=== PATIENT | female | born 1940 | race Hispanic/Latino ===

== ENCOUNTER 2019-10-05 09:49 | Inpatient (IN) | payer OTHER ==
[~2019-10-05] VITALS: Ht 157.5 cm; Wt 57.8 kg
[2019-10-05] MEDS ORDERED: MORPHINE SULFATE 2 MG/ML SYR 1ML IV ONE (11:00)
[2019-10-05] MEDS ORDERED: VANCOMYCIN 1GM/NS 250 ML 250 ML IV ONE (11:00)
[2019-10-05] MEDS ORDERED: ONDANSETRON HCL INJ 2MG/ML 2ML 2 MG/ML VIAL IV ONE (11:00)
[2019-10-05 11:27] LABS: BASOPHILS # (AUTO) 0.1 (0.0-0.1); BASOPHILS % 0.9 % (0.0-1.0); EOSINOPHILS % 0.4 % (0.0-6.0); HEMATOCRIT 33.3 % (34.2-44.1); HEMOGLOBIN 11.1 g/dL (12.0-16.0); LYMPHOCYTES # (AUTO) 1.2 (1.0-3.2); LYMPHOCYTES % 13.2 % (18.0-39.1); MEAN CORPUSCULAR HEMOGLOBIN 29.8 pg (28-32); MEAN CORPUSCULAR HGB CONC 33.3 g/dL (31-35); MEAN CORPUSCULAR VOLUME 89.3 fL (81-99); MONOCYTES # (AUTO) 0.3 (0.2-0.8); MONOCYTES % 3.4 % (4.4-11.3); NEUTROPHILS # (AUTO) 7.7 (2.1-6.9); NEUTROPHILS % 81.7 % (38.7-80.0); PLATELET COUNT 304 x10e3/uL (140-360); RED BLOOD COUNT 3.73 x10e6/uL (3.6-5.1); RED CELL DISTRIBUTION WIDTH 15.4 % (11.7-14.4)
--- NOTE | 2019-10-05 11:38 | Diagnostic Imaging Report ---
EXAMINATION: CHEST SINGLE (PORTABLE) INDICATION: Necrotic toe. COMPARISON: None FINDINGS: TUBES and LINES: None. LUNGS: Lungs are moderately inflated. There is no evidence of pneumonia or pulmonary edema. PLEURA: No pleural effusion or pneumothorax. Slight nonspecific elevation of the right hemidiaphragm. HEART AND MEDIASTINUM: The cardiomediastinal silhouette is unremarkable. BONES AND SOFT TISSUES: No acute osseous abnormality. Partially seen right proximal humeral fixation hardware. UPPER ABDOMEN: No free air under the diaphragm. IMPRESSION: No acute radiographic abnormality. Signed by: Dr. Carey Carranza MD on 10/05/2019 11:34 AM
[2019-10-05 11:42] LABS: INR 0.9; PROTHROMBIN TIME 12.6 seconds (11.9-14.5)
[2019-10-05] MEDS ORDERED: SODIUM CHLORIDE 0.9% 1000ML 1,000 ML IV ONE (11:45)
[2019-10-05] MEDS ORDERED: ONDANSETRON HCL INJ 2MG/ML 2ML 2 MG/ML VIAL IV PRN (11:45)
--- NOTE | 2019-10-05 11:49 | Diagnostic Imaging Report ---
Exam: Left foot radiographs-3 views Clinical History: Necrotic left second toe. Comparison: None. Findings/Impression: There is soft tissue irregularity in the second toe with soft tissue gas. It is unclear if is an erosion of the underlying second toe middle or distal phalanges to suggest osteomyelitis. MRI would be more sensitive for evaluation. There is soft tissue edema in the great toe. No evidence of acute displaced fracture or malalignment. Diffuse osteopenia. Moderate degenerative changes in the interphalangeal joints and midfoot. Signed by: Dr. Carey Carranza MD on 10/05/2019 11:45 AM
[2019-10-05 11:53] LABS: ALBUMIN 3.3 g/dL (3.5-5.0); ANION GAP 14.2 mmol/L (8-16); CALCIUM 9.6 mg/dL (8.4-10.2); CREATININE, SERUM 2.04 mg/dL (0.57-1.11); MAGNESIUM 1.7 MG/DL (1.3-2.1); POTASSIUM 3.2 mmol/L (3.5-5.1)
[2019-10-05 12:01] LABS: CREATINE KINASE MB 1.8 ng/mL (0-5.0)
[2019-10-05 12:01] LABS: BILIRUBIN,URINE NEGATIVE (NEGATIVE); CLARITY,URINE CLEAR (CLEAR); COLOR,URINE YELLOW (YELLOW); KETONES,URINE NEGATIVE (NEGATIVE); LEUKOCYTE ESTERASE ,URINE NEGATIVE (NEGATIVE); NITRITE,URINE NEGATIVE (NEGATIVE); PROTEIN,URINE DIPSTICK 2+ (NEGATIVE); URINE UROBILINOGEN 0.2 mg/dL (0.2 - 1)
--- OUTSIDE RECORDS SUMMARY | 2019-10-05 12:08 | XMS REPORT ---
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 Allergies, Adverse Reactions, Alerts This patient has no known allergies or adverse reactions. Medications This patient has no known medications. Results Test Description Test Time Test Comments Text Results Atomic Results Result Comments FOOT LEFT COMPLETE 2019-10-05 11:42:00 [place] [address] Patient Name: JACKIE PEREZ MR #: [id number] : 1940 Age/Sex: 79/F Req #: [id number] Adm Physician: Ordered by: BETHEL PARK MD Report #: [id number] Location: ER Room/Bed: Procedure: [id number] DX/FOOT LEFT COMPLETE Exam Date: 10/05/19 Exam Time: 1030 REPORT STATUS: Signed Exam: Left foot radiographs-3 views Clinical History: Necrotic left second toe. Comparison: None. Findings/Impression: There is soft tissue irregularity in the second toe with soft tissue gas. It is unclear if is an erosion of the underlying second toe middle or distal phalanges to suggest osteomyelitis. MRI would be more sensitive for evaluation. There is soft tissue edema in the great toe. No evidence of acute displaced fracture or malalignment. Diffuse osteopenia. Moderate degenerative changes in the interphalangeal joints and midfoot. Signed by: Dr. Cecile Ivy MD on 10/05/2019 11:45 AM Dictated By: CECILE IVY MD 1145 Transcribed By: CYRIL on 10/05/19 1145 COPY TO: BETHEL PARK MD CHEST SINGLE (PORTABLE) 2019-10-05 11:33:00 [place] [address] Patient Name: JACKIE PEREZ MR #: [id number] : 1940 Age/Sex: 79/F Req #: [id number] Adm Physician: Ordered by: BETHEL PARK MD Report #: [id number] Location: ER Room/Bed: Procedure: [id number] DX/CHEST SINGLE (PORTABLE) Exam Date: 10/05/19 Exam Time: 1030 REPORT STATUS: Signed EXAMINATION: CHEST SINGLE (PORTABLE) IND ICATION: Necrotic toe. COMPARISON: None FINDINGS: TUBES and LINES: None. LUNGS: Lungs are moderately inflated. There is no evidence of pneumonia or pulmonary edema. PLEURA: No pleural effusion or pneumothorax. Slight nonspecific elevation of the right hemidiaphragm. HEART AND MEDIASTINUM: The cardiomediastinal silhouette is unremarkable. BONES AND SOFT TISSUES: No acute osseous abnormality. Partially seen right proximal humeral fixation hardware. UPPER ABDOMEN: No free air under the diaphragm. IMPRESSION: No acute radiographic abnormality. Signed by: Dr. Cecile Ivy MD on 10/05/2019 11:34 AM Dictated By: CECILE IVY MD 1134 Transcribed By: CYRIL on 10/05/19 1134 COPY TO: BETHEL PARK MD
[2019-10-05 12:23] LABS: BACTERIA,URINE MODERATE /HPF; EPITHELIAL CELLS,URINE MODERATE /LPF; RBC,URINE 0-5 /HPF (0-5); YEAST,URINE FEW
[2019-10-05] MEDS ORDERED: POTASSIUM CHLORIDE 20 MEQ TAB CR PO ONE (14:00)
--- NOTE | 2019-10-05 15:30 | NUR ---
RECD PT FROM ER VIA W/C,AAOX3,DENIES PAIN,IV INFUSING TO RT AC 20 G.SECOND TOE LEFT FOOT BLACK,
[2019-10-05 16:08] VITALS: BP 180/75
[2019-10-05] MEDS ORDERED: DEXTROSE 50% SYRINGE 50 ML IV PRN (16:15)
[2019-10-05] MEDS ORDERED: METRONIDAZOLE500 MG PO (16:30)
[2019-10-05] MEDS ORDERED: GABAPENTIN100 MG PO (16:30)
[2019-10-05] MEDS ORDERED: CLONIDINE HCL0.1 MG PO (16:30)
[2019-10-05] MEDS ORDERED: NEXIUM40 MG PO (16:30)
[2019-10-05] MEDS ORDERED: FUROSEMIDE40 MG PO (16:30)
[2019-10-05] MEDS ORDERED: DOXYCYCLINE HY100 MG PO (16:30)
[2019-10-05] MEDS ORDERED: NORCO 5-325 TA1 EACH PO (16:30)
[2019-10-05] MEDS ORDERED: AMLODIPINE BESY10 MG PO (16:30)
[2019-10-05] MEDS ORDERED: ATORVASTATIN CA20 MG PO (16:30)
[2019-10-05] MEDS ORDERED: RENA-VITE RX T1 EACH PO (16:30)
[2019-10-05] MEDS ORDERED: ASPIR 8181 MG PO (16:30)
[2019-10-05] MEDS ORDERED: FERROUS SULFAT325 MG PO (16:30)
[2019-10-05] MEDS ORDERED: VASCEPA1 GM PO (16:30)
[2019-10-05] MEDS ORDERED: ALLOPURINOL100 MG PO (16:30)
[2019-10-05] MEDS ORDERED: METOPROLOL SUCC50 MG PO (16:30)
[2019-10-05] MEDS ORDERED: ULTRAM 50MG50 MG PO (16:30)
[2019-10-05] MEDS ORDERED: HYDROCODONE/APAP 5MG-325MG TAB PO PRN (16:30)
[2019-10-05] MEDS ORDERED: BENICAR20 MG PO (16:30)
[2019-10-05] MEDS ORDERED: TRULICITY1.5 MG/0.5 (16:30)
[2019-10-05] MEDS ORDERED: HYDROCHLOROTHIA25 MG PO (16:30)
[2019-10-05] MEDS: INSULIN REGULAR, HUMAN 100 UNIT/1 ML 3ML VIAL SQ SCH ×2 (16:30→21:00)
[2019-10-05] MEDS ORDERED: D3 DOTS2000 UNIT PO (16:30)
[2019-10-05] MEDS ORDERED: SODIUM CHLORIDE 0.9% 1000ML 1,000 ML ONE (17:15)
[2019-10-05] MEDS: CLONIDINE HCL 0.1 MG TAB PO SCH (17:25)
[2019-10-05] MEDS: OMEGA 3 POLYUNSAT FATTY ACIDS 1000 MG SOFTGEL PO SCH (17:25)
--- NOTE | 2019-10-05 18:31 | Consultation ---
DATE OF CONSULTATION: 10/05/2019 REASON FOR CONSULTATION: Gangrene with pain to the left foot with pain involving the first MPJ, left lower extremity with the patient being an insulin-dependent diabetic. HISTORY OF PRESENT ILLNESS: This is a pleasant 79-year-old female, who was seen in the office, was told to present through the emergency room secondary to worsening of her left lower extremity. She has had a gangrenous toe for at least four months with denying history of fever, chills, nausea, or vomiting. She was also having some pain involving the first MPJ, was instructed that the toe will need to be amputated. PAST MEDICAL HISTORY: Remarkable for diabetes, insulin dependent; chronic kidney disease, hypertension, and hyperlipidemia. PAST SURGICAL HISTORY: Remarkable for balloon angioplasty to the left lower extremity approximately a week ago, cholecystectomy, and right shoulder surgery. ALLERGIES: THE PATIENT DENIES WITH POSSIBLE ALLERGIES TO HYDRALAZINE. CURRENT MEDICATIONS: Note listed in chart including IV cefepime. SOCIAL HISTORY: Used to smoke at least a pack a week for 20 plus years. Socially drinks. Does not do any type of recreational drugs. Has five kids. Lives with . FAMILY HISTORY: Remarkable for diabetes. REVIEW OF SYSTEMS: CARDIAC: Denying any palpitations or arrhythmias. RESPIRATORY: Denies any shortness of breath or productive cough. GASTROINTESTINAL: Denies any diarrhea or constipation. GENITOURINARY: Denies any problems with voiding. PHYSICAL EXAMINATION: VITAL SIGNS: Afebrile, pulse rate 80, respirations 18, blood pressure 205/91, and O2 saturation 98%. PODIATRIC: Reveals the following vasculature, pedal pulses of both the DP and PT are diminished to both lower extremities. Skin temperature warm to touch with the CFT to all toes except the second less than 5 seconds. NEUROLOGIC: Decreased and protective sensation to both lower extremities. MUSCULOSKELETAL: Muscle mass to be symmetrical and wasted. Muscle strength to be 4/5 to all muscle groups. Has some pain and erythema surrounding the first MPJ, left foot with gangrenous toe and cellulitis to the second toe left foot with foul smell present. LABORATORY DATA: Noted as a white blood cell count of 9.4, hemoglobin 11.1 with a platelet count of 304. Blood glucose of 296, creatinine of 2.04, BUN of 30, and albumin of 3.3. ASSESSMENT: Cellulitis, gangrene, hallux valgus deformity with possible abscess formation. PLAN: X-rays of the left foot three views will be ordered. We will start diluted wet-to-dry Betadine dressing. Continue IV antibiotics. Dr. Lujan will be consulted and Dr. Lau for vascular evaluation and kidney evaluation. The patient will be scheduled for surgery on Sunday. MARCELLUS Wilcox/LUMA /[id number]
[2019-10-05 20:00] VITALS: BP 156/68
--- NOTE | 2019-10-05 20:00 | NUR ---
Received change of shift report from AM nurse. Walking rounds completed.
[2019-10-05] MEDS ORDERED: AMLODIPINE BESYLATE 10 MG TAB PO SCH (21:00)
[2019-10-05] MEDS: GABAPENTIN 100 MG CAP PO SCH (21:00)
[2019-10-05] MEDS: TRAMADOL HCL 50 MG TAB PO SCH (21:00)
[2019-10-05] MEDS: ATORVASTATIN 20 MG TAB PO SCH (21:00)
[2019-10-06] VITALS (8 sets, daily range): BP systolic 136–191; BP diastolic 63–77
[2019-10-06 06:22] LABS: BASOPHILS # (AUTO) 0.1 (0.0-0.1); BASOPHILS % 0.8 % (0.0-1.0); EOSINOPHILS # (AUTO) 0.1 (0.0-0.4); EOSINOPHILS % 1.6 % (0.0-6.0); HEMATOCRIT 29.2 % (34.2-44.1); HEMOGLOBIN 9.8 g/dL (12.0-16.0); LYMPHOCYTES # (AUTO) 1.9 (1.0-3.2); LYMPHOCYTES % 24.7 % (18.0-39.1); MEAN CORPUSCULAR HEMOGLOBIN 30.3 pg (28-32); MEAN CORPUSCULAR HGB CONC 33.6 g/dL (31-35); MEAN CORPUSCULAR VOLUME 90.4 fL (81-99); MONOCYTES # (AUTO) 0.5 (0.2-0.8); MONOCYTES % 6.5 % (4.4-11.3); NEUTROPHILS # (AUTO) 5.1 (2.1-6.9); PLATELET COUNT 276 x10e3/uL (140-360); RED BLOOD COUNT 3.23 x10e6/uL (3.6-5.1); RED CELL DISTRIBUTION WIDTH 15.5 % (11.7-14.4)
[2019-10-06 06:55] LABS: ALBUMIN 2.6 g/dL (3.5-5.0); ANION GAP 10.8 mmol/L (8-16); CALCIUM 8.6 mg/dL (8.4-10.2); CREATININE, SERUM 1.49 mg/dL (0.57-1.11); POTASSIUM 3.8 mmol/L (3.5-5.1)
[2019-10-06] MEDS: INSULIN REGULAR, HUMAN 100 UNIT/1 ML 3ML VIAL SQ SCH ×4 (08:40→20:16)
[2019-10-06] MEDS: PANTOPRAZOLE SOD 40 MG TABEC PO SCH (08:43)
[2019-10-06] MEDS: OMEGA 3 POLYUNSAT FATTY ACIDS 1000 MG SOFTGEL PO SCH ×2 (08:43→17:30)
[2019-10-06] MEDS: ASPIRIN 81 MG CHEW TAB PO SCH (08:43)
[2019-10-06] MEDS: CLONIDINE HCL 0.1 MG TAB PO SCH ×2 (08:43→17:30)
[2019-10-06] MEDS: OLMESARTAN 20 MG TAB PO SCH (08:43)
[2019-10-06] MEDS: METOPROLOL SUCCINATE 50 MG TAB XL PO SCH (08:43)
[2019-10-06] MEDS: FERROUS SULFATE 325 MG TAB PO SCH (08:43)
[2019-10-06] MEDS: FOLIC ACID/CYANOCOB/PYRIDOXINE TAB PO SCH (08:43)
[2019-10-06] MEDS: ALLOPURINOL 100 MG TAB PO SCH (08:44)
[2019-10-06] MEDS: CHOLECALCIFEROL 1,000 UNIT TAB PO SCH (08:44)
--- NOTE | 2019-10-06 08:44 | NUR ---
Pharmacy called this morning to clarify order for cefepime. Dr. Lau made aware of concern. Per it is okay to give. Pharmacy notified.
[2019-10-06] MEDS ORDERED: HYDROCHLOROTHIAZIDE 25 MG TAB PO SCH (09:00)
[2019-10-06] MEDS ORDERED: CEFEPIME 1GM/NS 0.9% 50 ML 50 ML IV SCH (09:00)
[2019-10-06] MEDS ORDERED: ACETAMINOPHEN 325 MG TAB PO PRN (09:00)
[2019-10-06] MEDS ORDERED: HYDRALAZINE HCL 20 MG/ML VIAL IV PRN (09:00)
[2019-10-06] MEDS ORDERED: FUROSEMIDE 40 MG TAB PO SCH (09:00)
[2019-10-06] MEDS ORDERED: ONDANSETRON HCL INJ 2MG/ML 2ML 2 MG/ML VIAL IV PRN (09:00)
[2019-10-06] MEDS ORDERED: NIFEDIPINE CR 30 MG TAB PO ONE (09:55)
--- NOTE | 2019-10-06 11:18 | Progress Note ---
DATE: 10/06/2019 SUBJECTIVE: The patient is seen at bedside, accompanied by family members, having some discomfort to the left lower extremity. She is denying any history of fever, chills, nausea, or vomiting. OBJECTIVE: VITAL SIGNS: Afebrile, pulse rate 68, respirations 19, blood pressure 191/77, and O2 saturation 100%. EXTREMITIES: Has cellulitis of the 2nd toe left foot with foul smell. Abscess formation noted proximal to the gangrene. Has erythema surrounding the 1st MPJ. Pedal pulses diminished, but skin temperature warm to touch. LABORATORY DATA: Labs show a white blood cell count of 7.7, hemoglobin 9.8 with a platelet count of 276, with a blood glucose of 133. ASSESSMENT: Hallux valgus deformity, capsulitis, gangrene with abscess, and osteomyelitis, left foot. PLAN: The patient will be taken for surgical intervention tomorrow. The proposed surgery plus risks and complications were reviewed in great detail. The patient and patient's family members were given time to ask questions. All questions were answered. Consent will be signed willingly. Procedure will be performed are I and D, left foot; amputation 2nd toe left foot with rotational flap closure with a silver bunionectomy. The patient will be kept n.p.o. after midnight . MARCELLUS Wilcox/LUMA /[id number]
[2019-10-06] MEDS: CEFEPIME 1GM/NS 0.9% 50 ML 50 ML IV SCH ×2 (12:01→23:49)
--- NOTE | 2019-10-06 12:45 | Consultation ---
DATE OF CONSULTATION: 10/05/2019 Cardiology Consultation CONSULTING PHYSICIAN: Stephan Drake MD, Interventional Cardiology. REASON FOR CONSULTATION: PAD. HISTORY OF PRESENT ILLNESS: Ms. Goldstein is a 79-year-old woman with diabetes, hypertension, and dyslipidemia, peripheral vascular disease, status post recent revascularization by Dr. Oliver at [facility] within the last month, presents with dry gangrene of left 2nd toe. She is scheduled for amputation during this hospital stay. She currently denies any chest discomfort or shortness of breath and has no other complaints at this time. REVIEW OF SYSTEMS: A 12-system review is negative except for as noted above. PAST MEDICAL HISTORY: Remarkable for hypertension, diabetes and dyslipidemia. ALLERGIES: HYDRALAZINE. SOCIAL HISTORY: No active smoking, alcohol, or drugs. FAMILY HISTORY: Noncontributory. PHYSICAL EXAMINATION: VITAL SIGNS: Temperature 97.5, heart rate 79, blood pressure 180/75, respiratory rate 18, O2 saturation 99% on room air. BMI 23.4. GENERAL: In no acute distress. Alert, active, oriented x3. NECK: No JVD. Carotid bruit noted left more than right. CHEST: Clear to auscultation bilaterally. CARDIOVASCULAR: Regular rate and rhythm. Normal S1, S2. Systolic ejection murmur of 2/6. No S3. No S4. ABDOMEN: Soft, nontender. Bowel sounds positive. EXTREMITIES: No edema. Palpable dorsalis pedis and posterior tibial arteries. No edema. SKIN: Dry gangrene of left 2nd toe. MEDICATIONS: Cardiovascular medications have been reviewed. Aspirin 81 mg daily, furosemide 40 mg daily, metoprolol succinate 50 mg daily, atorvastatin 20 mg at bedtime, olmesartan 40 mg daily, clonidine 0.1 mg b.i.d., hydrochlorothiazide 25 mg daily, amlodipine 10 mg daily. STUDIES: Reviewed. Remarkable for creatinine of 2.04, potassium of 3.2 and a bicarbonate of 27. White blood cells 9.4, hemoglobin 11.1 and platelets 304. INR 0.9, PT 12.6, PTT 27. AST 15, ALT 17, alkaline phosphatase 101, total bilirubin 0.4. ASSESSMENT AND PLAN: A 79-year-old woman presents with peripheral arterial disease, status post left 2nd toe gangrene, recent revascularization at [facility], history of chronic kidney disease, diabetes, hypertension, dyslipidemia, noted to have carotid bruits and heart murmur on exam. 1. Recommend carotid ultrasound and echocardiogram. 2. Adjust antihypertensives as necessary to optimize blood pressure control. 3. Agree with continuing statin and aspirin. 4. Request records from [facility] regarding recent operative report from angiographic and revascularization procedure. Stephan Drake MD AFV/MODTami /[id number] MTDD
--- NOTE | 2019-10-06 13:00 | Progress Note ---
DATE: 10/06/2019 Cardiology Progress Note SUBJECTIVE: Denies any chest pain or shortness of breath. OBJECTIVE: VITAL SIGNS: Temperature 96.9, heart rate 68, blood pressure 120/70, respiratory rate 19, and O2 saturation 100%. GENERAL: No acute distress, alert. NECK: No JVD. CHEST: Clear to auscultation. CARDIOVASCULAR: Regular rate and rhythm. Normal S1, S2. ABDOMEN: Soft, nontender. Bowel sounds positive. EXTREMITIES: No edema. Warm distal extremities. Abnormal pedal pulses. Left toe gangrene. CARDIOVASCULAR MEDICATIONS: Clonidine, olmesartan, aspirin, atorvastatin, and nifedipine. LABORATORY DATA: Studies reviewed. Creatinine 1.4. White blood cell 7.7, hemoglobin 9.8, and platelets 276. ASSESSMENT AND PLAN: A 79-year-old woman, who presents with left toe gangrene, status post recent revascularization for peripheral arterial disease at [facility], records requested and pending, preserved left ventricular systolic function, diabetes, hypertension, and dyslipidemia. Recommend continue perioperative beta-blockers, moderate risk for adverse cardiovascular outcomes. No unstable cardiac conditions identified. Awaiting operative report from recent revascularization. We will follow along with you. MD TRISHA Clancy/LUMA /[id number]
--- NOTE | 2019-10-06 19:15 | NUR ---
patient received awake, alert, lying quietly in bed. no c/o pain noted. iv out at this time and to be replaced shortly. pm assessment complete. patient npo after mn for surgery tomorrow. patient verbalizes understanding of this. daughter noted at the bedside. patient/daughter instructed to call for assistance when needed.
--- NOTE | 2019-10-06 19:25 | NUR ---
new iv #22 placed to the left hand x 1 stick.
[2019-10-06] MEDS: TRAMADOL HCL 50 MG TAB PO SCH (20:15)
[2019-10-06] MEDS: ATORVASTATIN 20 MG TAB PO SCH (20:15)
[2019-10-06] MEDS: GABAPENTIN 100 MG CAP PO SCH (20:15)
--- NOTE | 2019-10-06 20:16 | NUR ---
blood sugar 256. 8 units humulin regular given per sliding scale. pm snack given at this time. patient/daughter is aware that patient is to remain npo after mn for surgery tomorrow.
--- NOTE | 2019-10-06 23:33 | Consultation ---
DATE OF CONSULTATION: 10/06/2019 REQUESTING PHYSICIAN: Dr. Casiano. REASON FOR CONSULTATION: CKD. Thank you for allowing us to participate in Ms. Goldstein's care, I am covering for Dr. Zuluaga. HISTORY OF PRESENT ILLNESS: A 79-year-old female with baseline creatinine of 1.4 or so, CKD is presumed from diabetes and hypertensive end-organ damage, has been dealing with gangrenous toe on the left foot, which has been dry, may need an amputation. She has been admitted because of worsening of the above gangrene. Denies any fever. Denies any chills. Denies any swelling. Admission creatinine was 2, it down to 1.4, so with the IV fluids. There is a prior history of smoking. She has had work done on that leg by Dr. Oliver at [facility]. She has a kidney doctor, Dr. Estrada, who does not come here. PAST MEDICAL HISTORY: Type 2 diabetes, CKD stage 3, hypertension, dyslipidemia, peripheral vascular disease. ALLERGIES: HYDRALAZINE. MEDICATIONS: Please see chart. SOCIAL HISTORY: At least prior 20/30 pack-year history of smoking. FAMILY HISTORY: Type 2 diabetes. REVIEW OF SYSTEMS: CONSTITUTIONAL: No fever, chills. SKIN: Darkening of the toe on the left foot. CARDIAC: No angina or syncope. RESPIRATORY: No cough, hemoptysis. NEURO: Denies any headache, seizures. Rest of review is negative. PHYSICAL EXAMINATION: GENERAL: Lying in bed, no distress. VITAL SIGNS: Temperature 98.5, pulse 68, blood pressure 159/69. CHEST: Clear. EXTREMITIES: No edema. ABDOMEN: Benign. NEUROLOGIC: Alert, appropriate. SKIN: Gangrenous changes in left foot. With minimal erythema around it. LABORATORY DATA: Hemoglobin is 9.8, creatinine 1.5. BUN 24, serum CO2 of 27, K of 3.8, calcium of 8.6, albumin 2.6. Urine is showing some proteinuria consistent with diabetic end-organ damage. ASSESSMENT: 1. Chronic kidney disease, stage 3, any acute injury at admission appears to be better. Most likely, she was a bit volume depleted and that has improved. 2. Anemia of chronic kidney disease. 3. Diabetic. 4. Hypertension. 5. End-organ damage. 6. Peripheral vascular disease. PLAN: From renal standpoint, continue current medications. She appears to be tolerating her angiotensin receptor kelvin. We will avoid NSAIDs and other nephrotoxins. We will follow along. MD RICK Pinto/LUMA /[id number]
[2019-10-06] MEDS ORDERED: SODIUM CHLORIDE 0.9% 250ML 250 ML ONE (23:38)
[2019-10-07] VITALS (8 sets, daily range): BP systolic 139–195; BP diastolic 63–78
--- NOTE | 2019-10-07 | NUR ---
patient appears to be resting quietly. no signs of pain/discomfort noted at this time. daughter remains at the bedside.
[2019-10-07] MEDS: NIFEDIPINE CR 30 MG TAB PO SCH (05:24)
[2019-10-07] MEDS ORDERED: BETAMETHASONE DISODIUM PHOS 6 MG/ML VIAL ONE (07:03)
[2019-10-07] MEDS ORDERED: LIDOCAINE HCL 1% LOCAL INJ 20 ML VIAL ONE (07:04)
[2019-10-07] MEDS ORDERED: BACITRACIN 50,000 UNIT VIAL ONE (07:04)
[2019-10-07] MEDS ORDERED: MUPIROCIN 2% OINT 22 GM TUBE ONE (07:04)
[2019-10-07] MEDS ORDERED: BUPIVACAINE HCL 0.5% INJ 30 ML VIAL INJ ONE (07:04)
--- NOTE | 2019-10-07 07:28 | NUR ---
PT LEAVING FLOOR FOR SURGERY AT THIS TIME.
[2019-10-07] MEDS: PANTOPRAZOLE SOD 40 MG TABEC PO SCH (07:30)
[2019-10-07] MEDS: INSULIN REGULAR, HUMAN 100 UNIT/1 ML 3ML VIAL SQ SCH ×4 (07:30→20:13)
--- NOTE | 2019-10-07 09:05 | NUR ---
REPORT RECEIVED FROM ORVILLE RICHARDSON FROM PACU.
[2019-10-07] MEDS ORDERED: METOPROLOL TARTRATE INJ 1 MG/ML VIAL ONE ×2 (09:16→18:39)
[2019-10-07 09:19] LABS: BASOPHILS # (AUTO) 0.1 (0.0-0.1); EOSINOPHILS # (AUTO) 0.2 (0.0-0.4); EOSINOPHILS % 2.5 % (0.0-6.0); HEMATOCRIT 29.7 % (34.2-44.1); HEMOGLOBIN 9.9 g/dL (12.0-16.0); LYMPHOCYTES # (AUTO) 1.3 (1.0-3.2); LYMPHOCYTES % 17.7 % (18.0-39.1); MEAN CORPUSCULAR HEMOGLOBIN 30.4 pg (28-32); MEAN CORPUSCULAR HGB CONC 33.3 g/dL (31-35); MEAN CORPUSCULAR VOLUME 91.1 fL (81-99); MONOCYTES # (AUTO) 0.5 (0.2-0.8); MONOCYTES % 6.4 % (4.4-11.3); NEUTROPHILS # (AUTO) 5.1 (2.1-6.9); PLATELET COUNT 292 x10e3/uL (140-360); RED BLOOD COUNT 3.26 x10e6/uL (3.6-5.1); RED CELL DISTRIBUTION WIDTH 15.7 % (11.7-14.4)
--- NOTE | 2019-10-07 09:21 | Diagnostic Imaging Report ---
EXAMINATION: FOOT LEFT AP LAT INDICATION: Postoperative COMPARISON: None FINDINGS: Portable AP and lateral images of the left foot demonstrate postoperative findings of interval amputation of the second toe at the level of the base of the second proximal phalanx. No unexpected fracture. Alignment appears anatomic. Mild diffuse osteopenia. Mild scattered degenerative changes. Small plantar calcaneal spur. Overlying splint material obscures fine bony detail. IMPRESSION: Postoperative findings status post second toe amputation. Signed by: Jeimy Katz MD on 10/07/2019 9:18 AM
--- NOTE | 2019-10-07 09:31 | NUR ---
PT ARRIVING TO UNIT FROM PACU BY STRETCHER AT THIS TIME.
[2019-10-07 09:35] LABS: ANION GAP 10.2 mmol/L (8-16); CALCIUM 8.8 mg/dL (8.4-10.2); CREATININE, SERUM 1.45 mg/dL (0.57-1.11); POTASSIUM 4.2 mmol/L (3.5-5.1)
--- NOTE | 2019-10-07 09:37 | NUR ---
PT ALERT AND ORIENTED AT THIS TIME. LEFT LEG IS WRAPPED AND IS CLEAN DRY AND INTACT AT THIS TIME. LEFT LEG ELEVATED ON PILLOW. FAMILY IS PRESENT AT BEDSIDE AND CALL LIGHT IS IN REACH.
[2019-10-07] MEDS: OLMESARTAN 20 MG TAB PO SCH (10:13)
[2019-10-07] MEDS: ASPIRIN 81 MG CHEW TAB PO SCH (10:13)
[2019-10-07] MEDS: CLONIDINE HCL 0.1 MG TAB PO SCH ×2 (10:14→16:55)
[2019-10-07] MEDS: FERROUS SULFATE 325 MG TAB PO SCH (10:15)
[2019-10-07] MEDS: OMEGA 3 POLYUNSAT FATTY ACIDS 1000 MG SOFTGEL PO SCH ×2 (10:15→16:55)
[2019-10-07] MEDS: FOLIC ACID/CYANOCOB/PYRIDOXINE TAB PO SCH (10:15)
[2019-10-07] MEDS: ALLOPURINOL 100 MG TAB PO SCH (10:16)
[2019-10-07] MEDS: METOPROLOL SUCCINATE 50 MG TAB XL PO SCH (10:16)
[2019-10-07] MEDS: CHOLECALCIFEROL 1,000 UNIT TAB PO SCH (10:16)
[2019-10-07] MEDS: CEFEPIME 1GM/NS 0.9% 50 ML 50 ML IV SCH (14:04)
[2019-10-07] MEDS ORDERED: SEVOFLURANE INHAL SOLN 250 ML PEN BTL ONE (18:39)
[2019-10-07] MEDS ORDERED: PROPOFOL IV EMULSION 10 MG/ML 20 ML VIAL ONE (18:39)
[2019-10-07] MEDS ORDERED: ACETAMINOPHEN 1000 MG/100 ML IV ONE (18:39)
[2019-10-07] MEDS ORDERED: LIDOCAINE HCL 2% LOCAL INJ 5 ML SDV VIAL INJ ONE (18:39)
--- NOTE | 2019-10-07 19:30 | NUR ---
patient received awake, alert, lying quietly in bed. patient c/o pain to left foot 6/10 at this time. patient recently medicated for pain. will call re: pain. pm assessment complete. daughter noted at the bedside. patient/daughter instructed to call for assistance when needed.
[2019-10-07] MEDS ORDERED: FENTANYL CITRATE/PF 100MCG/2 ML INJ ONE (19:35)
[2019-10-07] MEDS ORDERED: MIDAZOLAM HCL 2 MG/2 ML VIAL ONE (19:35)
[2019-10-07] MEDS: ATORVASTATIN 20 MG TAB PO SCH (20:12)
[2019-10-07] MEDS: HYDROCODONE/APAP 10MG-325MG TAB PO PRN (20:12)
[2019-10-07] MEDS: TRAMADOL HCL 50 MG TAB PO SCH (20:12)
[2019-10-07] MEDS: GABAPENTIN 100 MG CAP PO SCH (20:12)
--- NOTE | 2019-10-07 20:12 | NUR ---
Dr. Lau called re: patients pain. norco dose increased and ordered to give first dose now. patient medicated for pain at this time.
--- NOTE | 2019-10-07 20:17 | Progress Note ---
DATE: 10/07/2019 Cardiology Progress note SUBJECTIVE: Denies any new complaints. OBJECTIVE: VITAL SIGNS: Temperature 96.5, heart rate 68, blood pressure 173/73, respiratory rate 14, O2 saturation 100%, and BMI 23.4. GENERAL: In no acute distress, alert. NECK: Carotid bruit/subclavian bruit. No JVD. CHEST: Clear to auscultation bilaterally. CARDIOVASCULAR: Regular rate and rhythm. Normal S1, S2. No S3 or S4. ABDOMEN: Soft. Bowel sounds positive. EXTREMITIES: Trace edema. Left foot with postsurgical bandages in place. CARDIOVASCULAR MEDICATIONS: Reviewed. On clonidine, metoprolol, ferrous sulfate, aspirin, atorvastatin. STUDIES: Reviewed. Creatinine 1.4, hemoglobin 9.9, and platelets 292. INR 0.9. AST 13, ALT 13, alkaline phosphatase 76. ASSESSMENT AND PLAN: A 79-year-old woman, presents with left toe gangrene, now status post amputation. Recent outpatient revascularization for PAD, has significant right subclavian artery stenosis by arterial Doppler. RECOMMENDATIONS: 1. Check blood pressure to both upper extremities today to assess for hemodynamically and clinically significant difference in blood pressure, if confirmed go by left upper extremity blood pressure rates only. 2. Continue rest of cardiovascular medications. 3. Further adjusting antihypertensives as necessary. Stephan Drake MD AFKaren/LUMA /[id number]
[2019-10-08] MEDS: CEFEPIME 1GM/NS 0.9% 50 ML 50 ML IV SCH
[2019-10-08 00:05] VITALS: BP 156/67
[2019-10-08] MEDS: HYDROCODONE/APAP 10MG-325MG TAB PO PRN ×2 (02:06→07:58)
--- NOTE | 2019-10-08 02:06 | NUR ---
patient medicated with norco 10/325mg po for c/o left foot pain 04/21 at this time.
[2019-10-08 03:45] VITALS: BP 160/69
[2019-10-08] MEDS: NIFEDIPINE CR 30 MG TAB PO SCH (05:08)
[2019-10-08 05:49] LABS: BASOPHILS % 0.5 % (0.0-1.0); EOSINOPHILS # (AUTO) 0.3 (0.0-0.4); EOSINOPHILS % 4.2 % (0.0-6.0); HEMATOCRIT 28.5 % (34.2-44.1); LYMPHOCYTES % 26.2 % (18.0-39.1); MEAN CORPUSCULAR HEMOGLOBIN 29.3 pg (28-32); MEAN CORPUSCULAR HGB CONC 31.6 g/dL (31-35); MEAN CORPUSCULAR VOLUME 92.8 fL (81-99); MONOCYTES # (AUTO) 0.6 (0.2-0.8); MONOCYTES % 7.2 % (4.4-11.3); NEUTROPHILS # (AUTO) 4.7 (2.1-6.9); NEUTROPHILS % 61.5 % (38.7-80.0); PLATELET COUNT 236 x10e3/uL (140-360); RED BLOOD COUNT 3.07 x10e6/uL (3.6-5.1); RED CELL DISTRIBUTION WIDTH 15.6 % (11.7-14.4)
[2019-10-08 06:05] LABS: ANION GAP 12.8 mmol/L (8-16); CALCIUM 8.6 mg/dL (8.4-10.2); CREATININE, SERUM 1.62 mg/dL (0.57-1.11); POTASSIUM 4.8 mmol/L (3.5-5.1)
--- NOTE | 2019-10-08 07:25 | NUR ---
PT UP IN BED SLEEPING NO DISTRESS NTOED DENIES PAIN
[2019-10-08 07:30] VITALS: BP 176/76
[2019-10-08 08:07] VITALS: BP 176/76
[2019-10-08] MEDS: PANTOPRAZOLE SOD 40 MG TABEC PO SCH (08:35)
[2019-10-08] MEDS: OLMESARTAN 20 MG TAB PO SCH (08:36)
[2019-10-08] MEDS: ASPIRIN 81 MG CHEW TAB PO SCH (08:36)
[2019-10-08] MEDS: OMEGA 3 POLYUNSAT FATTY ACIDS 1000 MG SOFTGEL PO SCH (08:37)
[2019-10-08] MEDS: ALLOPURINOL 100 MG TAB PO SCH (08:37)
[2019-10-08] MEDS: FERROUS SULFATE 325 MG TAB PO SCH (08:37)
[2019-10-08] MEDS: CHOLECALCIFEROL 1,000 UNIT TAB PO SCH (08:37)
[2019-10-08] MEDS: CLONIDINE HCL 0.1 MG TAB PO SCH (08:37)
[2019-10-08] MEDS: FOLIC ACID/CYANOCOB/PYRIDOXINE TAB PO SCH (08:37)
[2019-10-08] MEDS: METOPROLOL SUCCINATE 50 MG TAB XL PO SCH (08:37)
[2019-10-08] MEDS: INSULIN REGULAR, HUMAN 100 UNIT/1 ML 3ML VIAL SQ SCH (08:42)
[2019-10-08] MEDS ORDERED: SENNA LAX8.6 MG PO (10:32)
[2019-10-08] MEDS ORDERED: CLINDAMYCIN HC150 MG PO (10:32)
[2019-10-08] MEDS ORDERED: MILK OF MA2400 MG/10 PO (10:35)
[2019-10-08] MEDS ORDERED: KETOROLAC TROMETHAMINE 30 MG/ML VIAL IV ONE (12:30)
--- NOTE | 2019-10-08 14:16 | Progress Note ---
DATE: 10/08/2019 Cardiology Progress Note SUBJECTIVE: No complaints. OBJECTIVE: VITAL SIGNS: Temperature 96.6, heart rate 73, blood pressure 176/76, respiratory rate 20, O2 saturation 99%. BMI 23. GENERAL: No acute distress, alert. NECK: No JVD. CHEST: Clear to auscultation. CARDIOVASCULAR: Regular rate and rhythm. Normal S1 and S2. No S3 or S4. ABDOMEN: Soft. Bowel sounds positive. EXTREMITIES: Trace edema. Left foot covered with dressings. CARDIOVASCULAR MEDICATIONS: Reviewed. Clonidine 0.1 mg b.i.d., losartan 40 mg daily, ferrous sulfate 325 mg daily, aspirin 81 mg daily, nifedipine 60 mg daily, atorvastatin 20 mg at bedtime, metoprolol succinate 50 mg daily. LABORATORY STUDIES: Reviewed. Sodium 143, potassium 4.8, chloride 109, bicarbonate 26, BUN 27, creatinine 1.62, glucose 127. White blood cells 7.6, hemoglobin 9, platelets 236. PT 12.6, PTT 27, INR 0.9. AST 13, ALT 13, alkaline phosphatase 76, total bilirubin 0.3. ASSESSMENT AND PLAN: A 79-year-old woman presents with peripheral vascular disease and has right subclavian artery stenosis with low blood pressure reads artifactually noted to right upper extremity as opposed to left upper extremity. 1. Hypertension. 2. Diabetes. 3. Neuropathy. 4. Peripheral vascular disease status post left toe gangrene and amputation. 5. Chronic kidney disease. 6. Anemia. RECOMMENDATIONS: 1. I will titrate metoprolol to 50 mg every 12 hours. 2. Obtain blood pressure reads only from left upper extremity and avoid reads from right upper extremity given right subclavian artery stenosis by carotid ultrasound and with significant difference in blood pressure rates upper extremities. 3. Anemia. Monitor. 4. Continue aspirin and statin. 5. Outpatient followup advised in 3 to 4 weeks. The patient underwent recent revascularization by Dr. Oliver. Stephan Drake MD AFV/MODL /[id number]
--- NOTE | 2019-10-08 14:37 | Progress Note ---
DATE: 10/08/2019 SUBJECTIVE: Had toe amputation on the left foot. Postop pain is noted, no swelling. Blood pressure has been somewhat high, partly on account of the pain. OBJECTIVE: VITAL SIGNS: Blood pressure is 176/96, pulse 73, and temperature 96.6. CHEST: Clear. EXTREMITIES: No edema. Right foot in bandage. ASSESSMENT: 1. Hypertension, not quite at goal, partly may be pain related, but still needs to be controlled. 2. Status post left toe amputation, second digit. 3. Anemia of chronic kidney disease. PLAN: Favor increasing the metoprolol to blood pressure settle down. She does have followup with Dr. 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 Avoid NSAIDs. We will follow along. MD RICK Pinto/LUMA /[id number]
--- NOTE | 2019-10-08 15:06 | Progress Note ---
DATE: 10/08/2019 SUBJECTIVE: The patient is seen at bedside, accompanied by family member, doing well. Some discomfort to the left lower extremity. Denies any history of fever, chills, nausea, or vomiting. OBJECTIVE: VITAL SIGNS: Afebrile. Vital signs stable. EXTREMITIES: CFT to all toes less than 4 seconds. No bloody strikethrough noted through the dressing. ASSESSMENT: Status post #1 day left foot surgery, multiple procedures. PLAN: Okay to be discharged today if okay with Dr. Lau. The patient is instructed to not walk on the foot. Will be seen in one week for dressing removal. Instructed not to touch the dressing until seen in the office. The patient's white blood cell count is stable down to 7.6, hemoglobin is 9.0 with a platelet count of 236, and a blood glucose of 127. MARCELLUS Wilcox/LUMA /[id number]
[2019-10-08] MEDS ORDERED: METOPROLOL SUCCINATE 50 MG TAB XL PO SCH (21:00)
--- NOTE | 2019-10-09 04:56 | Discharge Summary ---
PRIMARY CARE PHYSICIAN: Dr. Ryan Wilson. CONSULTING PHYSICIANS: 1. Dr. Stephan Drake. 2. Dr. Lor Zuluaga. 3. Dr. Raj Casiano. FINAL DIAGNOSES: 1. 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 2. Status post abscess incision and drainage and amputation of the 2nd toe. SUMMARY: The patient is a 79-year-old female with toe gangrene infection, osteomyelitis. The culture grew out to be Staphylococcus aureus. The patient is on antibiotics. She is stable. The patient has bone and soft tissue removal. She is stable. The dressing will not be changed and Dr. Casiano will see the patient on . The patient will go home today. She will resume all home medication. I will add on clindamycin 300 mg 3 times a day for 7 days. She will continue her doxycycline. The patient is otherwise stable and discharged home today. MD LOY Gibson/LUMA /[id number]
--- NOTE | 2019-10-17 04:48 | Operative Report ---
DATE OF PROCEDURE: 10/07/2019 SURGEON: Raj Casiano DPM PREOPERATIVE DIAGNOSES: 1. Abscess, left foot. 2. Gangrene, left foot. 3. Osteomyelitis, left foot. 4. High hallux valgus deformity, left foot. POSTOPERATIVE DIAGNOSES: Confirmed. OPERATIVE PROCEDURES: 1. I and D of abscess down to bone. 2. Partial amputation of 2nd toe, left foot. 3. Rotational flap closure. 4. Silver bunionectomy. 5. Intraoperative use of fluoroscopy. 6. Application of posterior splint. ANESTHESIA: General. HEMOSTASIS: None. PROCEDURE IN DETAIL: The patient was taken into the operating room and placed on the operating room table in supine position. Following induction of general anesthesia by the anesthesiologist, the left lower extremity was then prepped and draped in the usual aseptic manner, following procedures then performed: Procedure #1: I and D of abscess, left foot. Attention was directed to the dorsal aspect of the 2nd toe, where a curvilinear incision was performed overlying the gangrenous changes. Incision was deepened down to bone. Abscess was encountered and cultured for aerobic and anaerobic growth. At this point, the toe was then disarticulated at the proximal interphalangeal joint and sent for pathological analysis. Further debridement was done via sharp and blunt dissection until good viable bleeding tissue was achieved. At this point, utilizing the oscillating saw, the distal 3/4 of the proximal phalanx was then excised from the operation site in toto. All rough and bony edges were rasped smooth. Procedure #2: Rotational flap closure. Then, the incision was deepened proximal medially and dorsally laterally to create a plantar flap to allow for proper closure of the flap with minimal skin tension, hopefully, per any type of further surgical intervention and also more proximal amputation, the flap was then reapproximated utilizing 4-0 Vicryl, and 4-0 nylon with minimal skin tension was achieved. Procedure #4: Silver bunionectomy, left foot. Attention was then directed to the dorsal aspect of the 1st MPJ, where a 6 cm linear incision was performed. Incision was deepened down to the joint capsule. Longitudinal capsulotomy was then performed exposing the dorsomedial exostosis of the 1st metatarsal head via the use of an oscillating saw and rotating bur, dorsal medial exostosis was excised from the operation site in toto. A capsulorrhaphy was then performed to allow for a medial deviation of the toe utilizing 3-0 Vicryl for capsule and 4-0 nylon for skin. Procedure #5: Intraoperative use of fluoroscopy was then used to make sure proper alignment, partial resection was achieved. Procedure #6: Properly placed posterior splint was then applied, keeping the foot at 90 degrees with respect to the leg to try for any type of postop complications. The patient remained in the hospital for one day for IV antibiotics, will be discharged tomorrow if okay with Dr. Lau. She is to follow up in 1 week in the office. Instructed to keep her weightbearing to a minimum. Keep foot elevated. No guarantees were given, may need a more proximal amputation if not responsive. MARCELLUS Wilcox/LUMA /[id number]
== END 2019-10-08 13:30 | disposition home or self-care (01) | DRG 256 ==
LOC: ER 09:49 → ERHOLD 11:39 → MED/SURG3 15:40
PROVIDERS: ADMIT Internal Medicine; ATTEND Internal Medicine
PROC: 0HXNXZZ Transfer Left Foot Skin, External Approach (ICD-10-PCS; 2019-10-07)
PROC: 0J9R0ZZ Drainage of Left Foot Subcutaneous Tissue and Fascia, Open Approach (ICD-10-PCS; 2019-10-07)
PROC: 0Y6S0Z0 Detachment at Left 2nd Toe, Complete, Open Approach (ICD-10-PCS; principal; 2019-10-07 07:43)
PROC: 0QBP0ZZ Excision of Left Metatarsal, Open Approach (ICD-10-PCS; 2019-10-07 07:43)
DX: E11.52 Type 2 diabetes mellitus with diabetic peripheral angiopathy with gangrene (principal); I96 Gangrene, not elsewhere classified; L02.612 Cutaneous abscess of left foot; N17.9 Acute kidney failure, unspecified; M86.8X7 Other osteomyelitis, ankle and foot; L03.032 Cellulitis of left toe; E11.22 Type 2 diabetes mellitus with diabetic chronic kidney disease; I12.9 Hypertensive chronic kidney disease with stage 1 through stage 4 chronic kidney disease, or unspecified chronic kidney disease; E78.5 Hyperlipidemia, unspecified; M20.12 Hallux valgus (acquired), left foot; N18.3 Chronic kidney disease, stage 3 (moderate); E11.69 Type 2 diabetes mellitus with other specified complication; D63.1 Anemia in chronic kidney disease; Z87.891 Personal history of nicotine dependence
CPT/HCPCS: 36415; 71045; 80048; 80053; 81001; 82550; 82553; 82948; 83735; 84484; 85025; 85610; 85730; 87040; 87071; 87075; 87086; 87186; 87205; 88304; 88305; 88311; 93005; 93306; 93880; 99284; J0692; J0720; J1817; J1885; J2001; J2250; J2270; J2405; J3010; J3370; J7030; J7050

== ENCOUNTER 2021-05-02 11:09 | Inpatient (IN) | payer OTHER ==
[~2021-05-02 11:09] MED LIST: ALLOPURINOL100 MG PO; AMLODIPINE BESY10 MG PO; ASPIR 8181 MG PO; ATORVASTATIN CA20 MG PO; BENICAR20 MG PO; CLINDAMYCIN HC150 MG PO; CLONIDINE HCL0.1 MG PO; D3 DOTS2000 UNIT PO; DOXYCYCLINE HY100 MG PO; FERROUS SULFAT325 MG PO; FUROSEMIDE40 MG PO; GABAPENTIN100 MG PO; HYDROCHLOROTHIA25 MG PO; METOPROLOL SUCC50 MG PO; METRONIDAZOLE500 MG PO; MILK OF MA2400 MG/10 PO; NEXIUM40 MG PO; NORCO 5-325 TA1 EACH PO; RENA-VITE RX T1 EACH PO; SENNA LAX8.6 MG PO; TRULICITY1.5 MG/0.5; ULTRAM 50MG50 MG PO; VASCEPA1 GM PO
[2021-05-02 11:45] LABS: ALBUMIN/GLOBULIN RATIO 0.9 (0.8-2.0); ANION GAP 17.4 mmol/L (8-16); CREATININE, SERUM 3.31 mg/dL (0.57-1.11); POTASSIUM 3.4 mmol/L (3.5-5.1)
[2021-05-02] MEDS ORDERED: CEFTRIAXONE 1 GM in SODIUM CHLORIDE 0.9% 50ML 50 ML IV ONE (11:45)
[2021-05-02] MEDS ORDERED: FENTANYL CITRATE/PF 100MCG/2 ML INJ IV ONE (11:45)
[2021-05-02 11:46] LABS: BASOPHILS # (AUTO) 0.1 (0.0-0.1); BASOPHILS % 0.6 % (0.0-1.0); EOSINOPHILS # (AUTO) 0.4 (0.0-0.4); EOSINOPHILS % 2.6 % (0.0-6.0); HEMOGLOBIN 10.5 g/dL (12.0-16.0); LYMPHOCYTES # (AUTO) 1.6 (1.0-3.2); LYMPHOCYTES % 11.6 % (18.0-39.1); MEAN CORPUSCULAR HEMOGLOBIN 29.7 pg (28-32); MEAN CORPUSCULAR HGB CONC 32.8 g/dL (31-35); MEAN CORPUSCULAR VOLUME 90.7 fL (81-99); MONOCYTES # (AUTO) 0.7 (0.2-0.8); MONOCYTES % 4.6 % (4.4-11.3); NEUTROPHILS # (AUTO) 11.2 (2.1-6.9); NEUTROPHILS % 80.2 % (38.7-80.0); PLATELET COUNT 367 x10e3/uL (140-360); RED BLOOD COUNT 3.53 x10e6/uL (3.6-5.1); RED CELL DISTRIBUTION WIDTH 13.8 % (11.7-14.4)
[2021-05-02 11:59] LABS: BACTERIA,URINE MANY /HPF; CLARITY,URINE CLOUDY (CLEAR); COLOR,URINE YELLOW (YELLOW); EPITHELIAL CELLS,URINE FEW /LPF; KETONES,URINE TRACE (NEGATIVE); LEUKOCYTE ESTERASE ,URINE TRACE (NEGATIVE); MUCUS,URINE FEW (RARE); NITRITE,URINE NEGATIVE (NEGATIVE); PROTEIN,URINE DIPSTICK >=300 (NEGATIVE); RBC,URINE >50 /HPF (0-5); URINE UROBILINOGEN 0.2 mg/dL (0.2 - 1)
[2021-05-02] MEDS ORDERED: GENTAMICIN 120MG/NS 100ML 100 ML IV ONE (12:30)
[2021-05-02] MEDS ORDERED: DEXTROSE 50% SYRINGE 50 ML IV PRN (16:00)
[2021-05-02] MEDS ORDERED: FENTANYL CITRATE/PF 100MCG/2 ML INJ IV PRN (16:00)
[2021-05-02] MEDS: INSULIN REGULAR, HUMAN 100 UNIT/1 ML SQ SCH ×2 (16:30→21:00)
[2021-05-02] MEDS ORDERED: ATORVASTATIN 10 MG TAB ONE (21:47)
[2021-05-02] MEDS ORDERED: SODIUM CHLORIDE 0.9% 250ML 250 ML ONE (21:47)
[2021-05-02] MEDS ORDERED: ATORVASTATIN 20 MG TAB ONE (21:51)
[2021-05-03] MEDS ORDERED: ACETAMINOPHEN 325 MG TAB ONE ×2 (00:07→09:10)
[2021-05-03] MEDS: INSULIN REGULAR, HUMAN 100 UNIT/1 ML SQ SCH ×4 (07:30→21:00)
[2021-05-03] MEDS: FUROSEMIDE 40 MG TAB PO SCH (09:00)
[2021-05-03] MEDS ORDERED: ACETAMINOPHEN 325 MG TAB PO PRN (11:30)
[2021-05-03] MEDS: AMLODIPINE BESYLATE 10 MG TAB PO SCH (12:00)
[2021-05-03] MEDS: CLOPIDOGREL BISULFATE 75 MG TAB PO SCH (12:00)
[2021-05-03] MEDS: METOPROLOL SUCCINATE 50 MG TAB XL PO SCH (12:00)
[2021-05-03 12:03] LABS: ALBUMIN 2.7 g/dL (3.5-5.0); ALBUMIN/GLOBULIN RATIO 0.9 (0.8-2.0); ANION GAP 16.4 mmol/L (8-16); CALCIUM 8.3 mg/dL (8.4-10.2); CREATININE, SERUM 3.08 mg/dL (0.57-1.11); POTASSIUM 3.4 mmol/L (3.5-5.1)
[2021-05-03] MEDS: ACYCLOVIR SODIUM 700 MG in SODIUM CHLORIDE 0.9% 100 ML IV SCH (16:00)
[2021-05-03] MEDS ORDERED: metoprolol ER PO (16:13)
[2021-05-03] MEDS ORDERED: CLOPIDOGREL75 MG PO (16:13)
[2021-05-03] MEDS ORDERED: CEFDINIR300 MG PO (16:13)
[2021-05-03] MEDS ORDERED: CLONIDINE HCL0.1 MG PO (16:13)
[2021-05-03] MEDS ORDERED: POTASSIUM CHLORIDE 20 MEQ TAB CR PO ONE (16:25)
[2021-05-03] MEDS: CEFTRIAXONE 1 GM in SODIUM CHLORIDE 0.9% 50ML 50 ML IV SCH (17:00)
[2021-05-03] MEDS: BISACODYL 5 MG TAB EC PO PRN (17:23)
[2021-05-03] MEDS: HYDROCODONE/APAP 10MG-325MG TAB PO PRN (17:23)
[2021-05-03 20:00] VITALS: BP 170/63
[2021-05-03] MEDS: ATORVASTATIN 20 MG TAB PO SCH (21:43)
[2021-05-04] VITALS (8 sets, daily range): BP systolic 135–176; BP diastolic 66–86
[2021-05-04 06:13] LABS: BASOPHILS % 0.3 % (0.0-1.0); EOSINOPHILS # (AUTO) 0.1 (0.0-0.4); EOSINOPHILS % 0.8 % (0.0-6.0); HEMATOCRIT 32.6 % (34.2-44.1); HEMOGLOBIN 10.7 g/dL (12.0-16.0); LYMPHOCYTES # (AUTO) 0.8 (1.0-3.2); LYMPHOCYTES % 6.9 % (18.0-39.1); MEAN CORPUSCULAR HEMOGLOBIN 29.5 pg (28-32); MEAN CORPUSCULAR HGB CONC 32.8 g/dL (31-35); MEAN CORPUSCULAR VOLUME 89.8 fL (81-99); MONOCYTES # (AUTO) 0.7 (0.2-0.8); MONOCYTES % 6.2 % (4.4-11.3); NEUTROPHILS # (AUTO) 9.9 (2.1-6.9); NEUTROPHILS % 85.2 % (38.7-80.0); PLATELET COUNT 337 x10e3/uL (140-360); RED BLOOD COUNT 3.63 x10e6/uL (3.6-5.1); RED CELL DISTRIBUTION WIDTH 13.7 % (11.7-14.4)
[2021-05-04 06:52] LABS: ALBUMIN 2.7 g/dL (3.5-5.0); ALBUMIN/GLOBULIN RATIO 0.9 (0.8-2.0); ANION GAP 15.7 mmol/L (8-16); CALCIUM 8.4 mg/dL (8.4-10.2); CREATININE, SERUM 3.01 mg/dL (0.57-1.11); POTASSIUM 3.7 mmol/L (3.5-5.1)
[2021-05-04] MEDS: INSULIN REGULAR, HUMAN 100 UNIT/1 ML SQ SCH ×4 (07:30→21:08)
[2021-05-04] MEDS: HYDROCODONE/APAP 10MG-325MG TAB PO PRN (07:48)
[2021-05-04] MEDS: ONDANSETRON HCL INJ 2MG/ML 2ML 2 MG/ML VIAL IV PRN ×2 (09:53→14:21)
[2021-05-04] MEDS: CLOPIDOGREL BISULFATE 75 MG TAB PO SCH (09:55)
[2021-05-04] MEDS: AMLODIPINE BESYLATE 10 MG TAB PO SCH (09:56)
[2021-05-04] MEDS: CEFTRIAXONE 1 GM in SODIUM CHLORIDE 0.9% 50ML 50 ML IV SCH (09:56)
[2021-05-04] MEDS: FUROSEMIDE 40 MG TAB PO SCH (09:56)
[2021-05-04] MEDS ORDERED: REGADENOSON 0.4 MG/5 ML SYR IV ONE (12:34)
[2021-05-04] MEDS: MEROPENEM 500 MG in SODIUM CHLORIDE 0.9% 50ML 50 ML IV SCH (14:51)
[2021-05-04] MEDS ORDERED: SODIUM CHLORIDE 0.9% 100 ML ONE (14:59)
[2021-05-04] MEDS: ACYCLOVIR SODIUM 700 MG in SODIUM CHLORIDE 0.9% 100 ML IV SCH (16:52)
[2021-05-04] MEDS: METOPROLOL SUCCINATE 50 MG TAB XL PO SCH (16:54)
[2021-05-04] MEDS: ATORVASTATIN 20 MG TAB PO SCH (21:10)
[2021-05-05] VITALS (8 sets, daily range): BP systolic 131–178; BP diastolic 62–128
[2021-05-05] MEDS: MEROPENEM 500 MG in SODIUM CHLORIDE 0.9% 50ML 50 ML IV SCH ×2 (02:44→15:00)
[2021-05-05] MEDS: HYDROCODONE/APAP 10MG-325MG TAB PO PRN (03:41)
[2021-05-05] MEDS: BISACODYL 5 MG TAB EC PO PRN (03:51)
[2021-05-05] MEDS ORDERED: HYDROXYZINE HCL 25 MG TAB PO PRN (06:00)
[2021-05-05] MEDS: INSULIN REGULAR, HUMAN 100 UNIT/1 ML SQ SCH ×4 (09:52→21:30)
[2021-05-05] MEDS: AMLODIPINE BESYLATE 10 MG TAB PO SCH (09:53)
[2021-05-05] MEDS: FUROSEMIDE 40 MG TAB PO SCH (09:53)
[2021-05-05] MEDS: CLOPIDOGREL BISULFATE 75 MG TAB PO SCH (09:53)
[2021-05-05] MEDS: METOPROLOL SUCCINATE 50 MG TAB XL PO SCH (09:53)
[2021-05-05] MEDS: LOSARTAN POTASSIUM 25 MG TAB PO SCH (09:53)
[2021-05-05] MEDS: ACYCLOVIR SODIUM 700 MG in SODIUM CHLORIDE 0.9% 100 ML IV SCH (16:45)
[2021-05-05] MEDS: ATORVASTATIN 20 MG TAB PO SCH (22:40)
[2021-05-06 00:57] VITALS: BP 172/79
[2021-05-06] MEDS: MEROPENEM 500 MG in SODIUM CHLORIDE 0.9% 50ML 50 ML IV SCH ×2 (04:21→15:00)
[2021-05-06 05:02] VITALS: BP 180/69
[2021-05-06 05:58] LABS: BASOPHILS # (AUTO) 0.1 (0.0-0.1); BASOPHILS % 0.9 % (0.0-1.0); EOSINOPHILS # (AUTO) 0.5 (0.0-0.4); EOSINOPHILS % 8.1 % (0.0-6.0); HEMATOCRIT 28.2 % (34.2-44.1); HEMOGLOBIN 9.2 g/dL (12.0-16.0); LYMPHOCYTES # (AUTO) 1.3 (1.0-3.2); LYMPHOCYTES % 19.6 % (18.0-39.1); MEAN CORPUSCULAR HEMOGLOBIN 29.5 pg (28-32); MEAN CORPUSCULAR HGB CONC 32.6 g/dL (31-35); MEAN CORPUSCULAR VOLUME 90.4 fL (81-99); MONOCYTES # (AUTO) 0.6 (0.2-0.8); MONOCYTES % 9.5 % (4.4-11.3); NEUTROPHILS % 61.1 % (38.7-80.0); PLATELET COUNT 245 x10e3/uL (140-360); RED BLOOD COUNT 3.12 x10e6/uL (3.6-5.1); RED CELL DISTRIBUTION WIDTH 13.8 % (11.7-14.4)
[2021-05-06 06:16] LABS: ALBUMIN 2.3 g/dL (3.5-5.0); ALBUMIN/GLOBULIN RATIO 0.9 (0.8-2.0); ANION GAP 11.8 mmol/L (8-16); CALCIUM 7.5 mg/dL (8.4-10.2); CREATININE, SERUM 3.61 mg/dL (0.57-1.11); MAGNESIUM 1.7 MG/DL (1.3-2.1)
[2021-05-06 06:38] LABS: POTASSIUM 2.8 mmol/L (3.5-5.1)
[2021-05-06] MEDS: INSULIN REGULAR, HUMAN 100 UNIT/1 ML SQ SCH ×3 (07:30→16:30)
[2021-05-06] MEDS ORDERED: POTASSIUM CHLORIDE 20 MEQ TAB CR PO ONE ×2 (08:00→11:30)
[2021-05-06 08:45] VITALS: BP 180/69
[2021-05-06] MEDS: CLOPIDOGREL BISULFATE 75 MG TAB PO SCH (09:00)
[2021-05-06] MEDS: AMLODIPINE BESYLATE 10 MG TAB PO SCH (09:00)
[2021-05-06] MEDS: FUROSEMIDE 40 MG TAB PO SCH (09:00)
[2021-05-06] MEDS: LOSARTAN POTASSIUM 25 MG TAB PO SCH (09:00)
[2021-05-06] MEDS: METOPROLOL SUCCINATE 50 MG TAB XL PO SCH (09:00)
[2021-05-06 09:34] VITALS: BP 174/80
[2021-05-06 12:09] VITALS: BP 150/70
[2021-05-06 15:03] LABS: ANION GAP 12.8 mmol/L (8-16); CALCIUM 7.8 mg/dL (8.4-10.2); CREATININE, SERUM 3.77 mg/dL (0.57-1.11); POTASSIUM 4.8 mmol/L (3.5-5.1)
[2021-05-06] MEDS ORDERED: SODIUM CHLORIDE 0.9% 100 ML ONE (15:53)
[2021-05-06] MEDS: ACYCLOVIR SODIUM 700 MG in SODIUM CHLORIDE 0.9% 100 ML IV SCH (16:00)
[2021-05-06] MEDS ORDERED: FOSFOMYCIN TROMETHAMINE 3 GM PACKET PO ONE (16:30)
[2021-05-06 16:39] VITALS: BP 187/70
[2021-05-06] MEDS ORDERED: ACYCLOVIR200 MG PO (16:40)
== END 2021-05-06 18:39 | disposition home or self-care (01) | DRG 871 ==
LOC: ER 11:09 → MED/SURG2 11:10 → INTOOBSV 11:10 → OBSVTOIN 05-04 10:29
PROVIDERS: ADMIT Internal Medicine; ATTEND Internal Medicine
PROC: 3E1M39Z Irrigation of Peritoneal Cavity using Dialysate, Percutaneous Approach (ICD-10-PCS; principal; 2021-05-04)
DX: A41.9 Sepsis, unspecified organism (principal); N18.6 End stage renal disease; B02.8 Zoster with other complications; I12.0 Hypertensive chronic kidney disease with stage 5 chronic kidney disease or end stage renal disease; N12 Tubulo-interstitial nephritis, not specified as acute or chronic; Z16.12 Extended spectrum beta lactamase (ESBL) resistance; E11.22 Type 2 diabetes mellitus with diabetic chronic kidney disease; Z99.2 Dependence on renal dialysis; Z79.899 Other long term (current) drug therapy; Z86.73 Personal history of transient ischemic attack (TIA), and cerebral infarction without residual deficits; B96.20 Unspecified Escherichia coli [E. coli] as the cause of diseases classified elsewhere; R94.31 Abnormal electrocardiogram [ECG] [EKG]; E78.5 Hyperlipidemia, unspecified; Z20.822 Contact with and (suspected) exposure to COVID-19
CPT/HCPCS: 36415; 71045; 74176; 78452; 80048; 80053; 81001; 82948; 83605; 83690; 83735; 84484; 85025; 87040; 87086; 87186; 93005; 93017; 93306; 99251; A9502; G0378; J0696; J1580; J1817; J2185; J2405; J3010; J3410; J7050; U0002

== ENCOUNTER 2021-08-02 10:28 | Emergency (ER) | payer OTHER, MEDICARE ==
[~2021-08-02] VITALS: Ht 157.5 cm; Wt 62.6 kg
[~2021-08-02 10:28] MED LIST changes: +ACYCLOVIR200 MG PO; +CEFDINIR300 MG PO; +CLOPIDOGREL75 MG PO; +metoprolol ER PO
[2021-08-02 11:12] LABS: BASOPHILS # (AUTO) 0.1 (0.0-0.1); BASOPHILS % 0.6 % (0.0-1.0); EOSINOPHILS # (AUTO) 0.3 (0.0-0.4); EOSINOPHILS % 3.8 % (0.0-6.0); HEMOGLOBIN 13.2 g/dL (12.0-16.0); LYMPHOCYTES # (AUTO) 1.9 (1.0-3.2); LYMPHOCYTES % 22.6 % (18.0-39.1); MEAN CORPUSCULAR HEMOGLOBIN 28.6 pg (28-32); MEAN CORPUSCULAR VOLUME 86.8 fL (81-99); MONOCYTES # (AUTO) 0.4 (0.2-0.8); NEUTROPHILS # (AUTO) 5.5 (2.1-6.9); NEUTROPHILS % 67.3 % (38.7-80.0); PLATELET COUNT 495 x10e3/uL (140-360); RED BLOOD COUNT 4.61 x10e6/uL (3.6-5.1); RED CELL DISTRIBUTION WIDTH 15.6 % (11.7-14.4)
[2021-08-02 11:30] LABS: ANION GAP 18.1 mmol/L (8-16); CALCIUM 8.6 mg/dL (8.4-10.2); CREATININE, SERUM 2.79 mg/dL (0.57-1.11); POTASSIUM 4.1 mmol/L (3.5-5.1)
[2021-08-02 14:50] VITALS: BP 133/81
== END 2021-08-02 14:56 | disposition home or self-care (01) ==
LOC: ER 10:58
DX: E11.69 Type 2 diabetes mellitus with other specified complication (principal); L08.9 Local infection of the skin and subcutaneous tissue, unspecified; S91.104A Unspecified open wound of right lesser toe(s) without damage to nail, initial encounter
CPT/HCPCS: 36415; 80048; 83605; 85025; 87040; 99284